=== PATIENT | male | born 1985 | race Two or more races ===

== ENCOUNTER 2016-11-23 14:43 | Emergency (ER) | payer MEDICAID ==
[2016-11-23 15:10] VITALS: BP 127/85
[2016-11-23] MEDS ORDERED: Lidocaine 1% 50 ML MDV INJECT ONE (15:58)
[2016-11-23] MEDS ORDERED: Bupivacaine 0.25% 10 ML SDV INJECT ONE (15:59)
--- NOTE | 2016-11-23 16:26 | EDM.PDOC ---
ED HPI GENERAL MEDICAL PROBLEM - General Chief Complaint: ENT Problem Stated Complaint: DENTAL COMPLAINT Time Seen by Provider: 11/23/16 15:55 Source of Information: Reports: Patient History Limitations: Reports: No Limitations - History of Present Illness INITIAL COMMENTS - FREE TEXT/NARRATIVE: 31-year-old male presents for evaluation treatment of dental pain. Patient reports that one month ago he broke a tooth on the left upper side. He states that he has been developing dental pain that has steadily been worsening over the last week. He states that he has tried Orajel, Tylenol and ibuprofen without any symptom relief. Reports that his last visited dental visit was about 2 years ago. He is currently trying to get in and see a dentist. Recently relocated from [place] to [place]. He has no appointment at this time. He is here requesting a dental block. Patient reports associated symptoms of fevers, nausea, headaches, left-sided facail pain extending into the left ear and the sinuses. He states he also has a bad taste in his mouth. He has not taken his temperature but feels he has been having fevers evident by feeling hot and chilled. No vomiting. Tooth/Teeth Pain Score (Numeric/FACES): 10 - Related Data Allergies Allergy/AdvReac Type Severity Reaction Status Date / Time Penicillins Allergy Swelling Verified 11/23/16 15:14 tramadol [From Ultram] Allergy Swelling Verified 11/23/16 15:14 Home Meds: Home Meds Acetaminophen/oxyCODONE [Percocet 325-5 MG] 1 tab PO Q4H PRN #20 tablet [Rx] Clindamycin HCl 300 mg PO Q6HR #40 capsule 11/23/16 [Rx] Past Medical History HEENT History: Reports: Other (See Below) Other HEENT History: dental issues Musculoskeletal History: Reports: Other (See Below) Other Musculoskeletal History: fractured T1 Social & Family History - Tobacco Use Smoking Status *Q: Current Every Day Smoker Years of Tobacco use: 16 Packs/Tins Daily: 0.2 - Caffeine Use Caffeine Use: Reports: Soda, Tea - Recreational Drug Use Recreational Drug Use: No ED ROS ENT - Review of Systems Review Of Systems: See Below Constitutional: Reports: Fever (reports fevers but has not checked his temperature), Chills, Malaise HEENT: Reports: Dental Pain (left upper teeth), Sinus Problem (left maxilla), Other (reports a bad taste in his mouth) GI/Abdominal: Reports: Nausea. Denies: Vomiting Neurological: Reports: Headache ED EXAM, ENT - Physical Exam Exam: See Below Exam Limited By: No Limitations General Appearance: Alert, WD/WN, No Apparent Distress Ears: Normal External Exam, Normal Canal, Hearing Grossly Normal, Normal TMs Nose: Normal Inspection Mouth/Throat: Normal Inspection, Normal Gums, Dental Abcess (#11 and #12), Dental Pain (#11 and #12), Dental Tenderness, Other (multiple missing teeth, very poor dentition, carries extending into the dentin in multiple teeth, multile broken teeth) Neck: Normal Inspection Respiratory/Chest: No Respiratory Distress, Lungs Clear, Normal Breath Sounds Cardiovascular: Normal Peripheral Pulses, Regular Rate, Rhythm, No Murmur Neurological: Alert, Oriented, Normal Cognition Psychiatric: Normal Affect, Normal Mood Skin: Warm, Dry, Normal Color Course - Vital Signs Last Recorded V/S: Last Vital Signs Temp 36.7 C 11/23/16 15:07 Pulse 91 11/23/16 15:07 Resp 20 11/23/16 15:07 BP 127/85 11/23/16 15:07 Pulse Ox 99 11/23/16 15:07 - Orders/Labs/Meds Meds: Medications Discontinued Medications Generic Name Dose Route Start Last Admin Trade Name Paul PRN Reason Stop Dose Admin Bupivacaine HCl 10 ml 11/23/16 15:59 11/23/16 16:57 Sensorcaine-Mpf 0.25% INJECT 11/23/16 16:00 10 ml ONETIME ONE Administration Lidocaine HCl 50 ml 11/23/16 15:58 11/23/16 16:56 Xylocaine 1% INJECT 11/23/16 15:59 50 ml ONETIME ONE Administration - Re-Assessments/Exams Free Text/Narrative Re-Assessment/Exam: 11/23/16 17:00 supraperiosteal infiltration dental block performed by injecting 1 and 1/2 mils of a 50-50 mixture of 1% lidocaine and 0.25% Marcaine into the mucobuccal fold at tooth number #11. Patient tolerated the procedure well. Anesthesia of the area achieved. Will start on clindamycin prescribed Percocet for pain. Discharge instructions as documented. Departure - Departure Time of Disposition: 17:01 Disposition: Home, Self-Care 01 Condition: Good Clinical Impression: Pain, dental, Dental abscess - Discharge Information Prescriptions: Clindamycin HCl 300 mg PO Q6HR #40 capsule Acetaminophen/oxyCODONE [Percocet 325-5 MG] 1 tab PO Q4H PRN #20 tablet PRN Reason: Pain Instructions: Dental Abscess, [id number] Referrals: PCP,None [Primary Care Provider] - Forms: ED Department Discharge Additional Instructions: follow-up with dental as soon as you are able to. Take clindamycin as prescribed. 1 tab every 6 hours for 10 days. Take this medication with food. Recommend starting a probiotic to help reduce upset stomach, nausea and diarrhea. Hulp-mgl-wocjdfe ibuprofen 600-800 mg every 6-8 hours for pain relief. For pain not relieved by ibuprofen he may take Percocet 1-2 tabs every 4-6 hours. Percocet can be habit-forming, I recommend he take as few days as needed to control his pain. Do not drive or operate machinery within 12 hours of taking the Percocet. Please return to the ER for any changing or worsening symptoms.
== END 2016-11-23 17:15 | disposition home or self-care (01) ==
LOC: JD.ED 14:43
DX: K04.7 Periapical abscess without sinus (principal); F17.210 Nicotine dependence, cigarettes, uncomplicated; Z88.0 Allergy status to penicillin; Z88.5 Allergy status to narcotic agent
CPT/HCPCS: 64400; 99283-25

== ENCOUNTER 2016-12-23 16:31 | Emergency (ER) | payer MEDICAID ==
[2016-12-23 16:46] VITALS: BP 138/93
[2016-12-23] MEDS ORDERED: Clindamycin HCl 150 MG Cap PO ONE (17:12)
--- NOTE | 2016-12-23 17:17 | EDM.PDOC ---
ED HPI GENERAL MEDICAL PROBLEM - General Chief Complaint: ENT Problem Stated Complaint: TOOTH PAIN Time Seen by Provider: 12/23/16 16:58 Source of Information: Reports: Patient History Limitations: Reports: No Limitations - History of Present Illness INITIAL COMMENTS - FREE TEXT/NARRATIVE: Patient is a 31-year-old male who presents to the ED complaining of an abscess to the left upper tooth. Patient has severe poor dentition. States approximately one month ago portion of the tooth #13 fractured off and development of pain thereafter. Has been using Orajel, Tylenol, and ibuprofen with no relief. He was evaluated in ED with findings concerning for dental abscess. He was treated with clindamycin and opioids. States he is awaiting for approval for Medicaid and thus has not seen a dentist yet. Has been taking Tylenol and ibuprofen with no relief. Notes drainage coming from the affected tooth. Has pain to the left cheek with no swelling present. He's had no fever/ chills, nausea/vomiting or any additional complaints. 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 Other Treatments FIBRE COMPOSITE TECHNICIAN: took at 1400 left lower jaw Pain Score (Numeric/FACES): 10 - Related Data Allergies Allergy/AdvReac Type Severity Reaction Status Date / Time Penicillins Allergy Swelling Verified 12/23/16 16:46 tramadol [From Ultram] Allergy Swelling Verified 12/23/16 16:46 Home Meds: Home Meds Clindamycin HCl 300 mg PO Q8HR #30 capsule 12/23/16 [Rx] Past Medical History HEENT History: Reports: Other (See Below) Other HEENT History: dental issues Musculoskeletal History: Reports: Other (See Below) Other Musculoskeletal History: fractured T1 Social & Family History - Family History Family Medical History: Noncontributory - Tobacco Use Smoking Status *Q: Current Some Day Smoker Years of Tobacco use: 18 Packs/Tins Daily: 0.2 - Caffeine Use Caffeine Use: Reports: Coffee - Recreational Drug Use Recreational Drug Use: No ED ROS ENT - Review of Systems Review Of Systems: ROS reveals no pertinent complaints other than HPI. ED EXAM, ENT - Physical Exam Exam: See Below Exam Limited By: No Limitations General Appearance: Alert, WD/WN, No Apparent Distress Ears: Hearing Grossly Normal Nose: Normal Inspection Mouth/Throat: Dental Abcess, Dental Pain, Dental Tenderness, Gum Swelling. No: Dry Mucous Membrane, Tonsillar Erythema, Tonsillar Exudates, Tonsillar Swelling , Trismus (Severe dental decay throughout his mouth with teeth missing. Affected tooth is #13 which is fractured in half. Small apical abscess present with minimal swelling present no drainage noted with palpation. Pain noted with gentle pressure along the gumline.), Uvular Deviation Head: Atraumatic, Normocephalic Neck: Normal Inspection, Supple Respiratory/Chest: No Respiratory Distress Cardiovascular: Normal Peripheral Pulses Neurological: Alert, Oriented, CN II-XII Intact, Normal Cognition Psychiatric: Normal Affect, Normal Mood Skin: Warm, Dry Course - Vital Signs Last Recorded V/S: Last Vital Signs Temp 97 F 12/23/16 16:43 Pulse 70 12/23/16 16:43 Resp 18 12/23/16 16:43 BP 138/93 H 12/23/16 16:43 Pulse Ox 99 12/23/16 16:43 - Orders/Labs/Meds Meds: Medications Discontinued Medications Generic Name Dose Route Start Last Admin Trade Name Freq PRN Reason Stop Dose Admin Clindamycin HCl 300 mg 12/23/16 17:12 12/23/16 17:32 Cleocin PO 12/23/16 17:13 300 mg ONETIME ONE Administration - Re-Assessments/Exams Free Text/Narrative Re-Assessment/Exam: Dental abscess noted to the #13 tooth. Although the patient has severe dental decay throughout his mouth and also adjacent to the area of concern. Small what appears to be of apical abscess with increased swelling to the gumline with erythema. No drainage noted. Patient does have increasing pain with palpation of the gumline. Offered to perform a supra-alveolar block for pain treatment to which the patient agreed. Patient had pain with injecting the bupivacaine. Numbness of the affected tooth noted. Ordered clindamycin 300 mg by mouth. We' ll discharge patient home with instructions as documented. Departure - Departure Time of Disposition: 17:22 Disposition: Home, Self-Care 01 Condition: Good Clinical Impression: Dental caries, Dental caries extending into dentin, Dental abscess, Pain, dental - Discharge Information Prescriptions: Clindamycin HCl 300 mg PO Q8HR #30 capsule Instructions: Dental Abscess, [id number], Dental Caries, [id number] Referrals: PCP,None [Primary Care Provider] - Forms: ED Department Discharge Additional Instructions: As discussed findings are concerning for dental abscess. Treatment is clindamycin 300 mg 3 times a day for 10 days. Take a sgta-[id number]-[id number] probiotic for the next month. Utilize Tylenol and ibuprofen and alternate fashion for pain. Call and make an appointment with a dentist and Dmitry for definitive treatment. Return to the ED for any new or worsening symptoms.
== END 2016-12-23 17:33 | disposition home or self-care (01) ==
LOC: JD.ED 16:31
DX: K04.7 Periapical abscess without sinus (principal); K02.9 Dental caries, unspecified; F17.210 Nicotine dependence, cigarettes, uncomplicated; Z88.0 Allergy status to penicillin; Z88.6 Allergy status to analgesic agent
CPT/HCPCS: 64400; 99283; A9270

== ENCOUNTER 2017-11-23 00:44 | Emergency (ER) | payer MEDICAID ==
[2017-11-23 00:59] VITALS: BP 132/103
[2017-11-23] MEDS ORDERED: Lidocaine/EPINEPHrine/Tetracaine Soln 1 ML TOP STA (01:10)
[2017-11-23] MEDS ORDERED: Bupivacaine 0.5% 10 ML SDV ONE (01:43)
[2017-11-23] MEDS ORDERED: Lidocaine 1% with EPINEPHrine 1:100,000 20 ML MDV ONE (01:43)
[2017-11-23] MEDS ORDERED: Lidocaine 1% with EPINEPHrine 1:100,000 20 ML MDV INJECT ONE (01:45)
[2017-11-23] MEDS ORDERED: Bupivacaine 0.5% 10 ML SDV INJECT ONE (01:45)
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
== END 2017-11-23 02:07 ==
LOC: JD.ED 00:44
DX: S01.81XA Laceration without foreign body of other part of head, initial encounter (principal); F10.129 Alcohol abuse with intoxication, unspecified; F17.210 Nicotine dependence, cigarettes, uncomplicated; Z88.0 Allergy status to penicillin; Z88.6 Allergy status to analgesic agent; W22.8XXA Striking against or struck by other objects, initial encounter
CPT/HCPCS: 12011; 99283; A9270; J3490

== ENCOUNTER 2019-09-24 10:14 | Emergency (ER) | payer SELFPAY | END 2019-09-24 10:30 | disposition left against medical advice (07) | LOC: JD.ED 10:14 | DX: Z53.21 Procedure and treatment not carried out due to patient leaving prior to being seen by health care provider (principal) ==

== ENCOUNTER 2019-09-25 11:10 | Emergency (ER) | payer OTHER ==
[2019-09-25 11:36] VITALS: BP 129/92; PULSE 86
--- NOTE | 2019-09-25 14:22 | EDM.PDOC ---
ED HPI GENERAL MEDICAL PROBLEM - General Chief Complaint: ENT Problem Stated Complaint: FACIAL SWELLING Time Seen by Provider: 09/25/19 14:15 - History of Present Illness INITIAL COMMENTS - FREE TEXT/NARRATIVE: 34-year-old male presents the emergency room with right facial swelling. This unfortunate gentleman has had a 2-day history of worsening swelling in his right face is progressively getting worse. Patient had reconstructive facial surgery with metal plates nearly 2 years ago. The patient denies any recent trauma he has had fevers with this most recent scenario. However he has not documented a fever here in the emergency room. Patient has significant discomfort from the swelling. The patient is not having any breathing difficulties or shortness of breath no nausea no vomiting. Face/Facial Pain Score (Numeric/FACES): 10 - Related Data Allergies Allergy/AdvReac Type Severity Reaction Status Date / Time Penicillins Allergy Severe Swelling Verified 09/25/19 11:36 tramadol [From Ultram] Allergy Severe Swelling Verified 09/25/19 11:36 Home Meds: Home Meds Clindamycin HCl 300 mg PO Q8H #30 capsule 09/25/19 [Rx] Hydrocodone/Acetaminophen [Haskell 7.5-325 Tablet] 1 - 2 each PO Q6H PRN #20 tablet 09/25/19 [Rx] Past Medical History HEENT History: Reports: Other (See Below) Other HEENT History: dental issues Musculoskeletal History: Reports: Fracture Other Musculoskeletal History: fractured T1 Psychiatric History: Reports: Depression - Past Surgical History HEENT Surgical History: Reports: Oral Surgery, Tonsillectomy, Other (See Below) Other HEENT Surgeries/Procedures: facial and jaw fx, orbit fx- repaired surgically Social & Family History - Family History Family Medical History: Noncontributory - Tobacco Use Smoking Status *Q: Current Every Day Smoker Years of Tobacco use: 3 Packs/Tins Daily: 0.5 - Caffeine Use Caffeine Use: Reports: Coffee, Soda - Recreational Drug Use Recreational Drug Type: Reports: Marijuana/Hashish - Living Situation & Occupation Living situation: Reports: Single Occupation: Unemployed ED ROS ENT - Review of Systems Review Of Systems: See Below Constitutional: Reports: Fever. Denies: Chills HEENT: Reports: Other (See history of present illness) Respiratory: Reports: No Symptoms Cardiovascular: Reports: No Symptoms GI/Abdominal: Reports: No Symptoms : Reports: No Symptoms Musculoskeletal: Reports: No Symptoms Skin: Reports: No Symptoms Neurological: Reports: No Symptoms ED EXAM, ENT - Physical Exam Exam: See Below Exam Limited By: No Limitations General Appearance: Alert, No Apparent Distress Ears: Normal External Exam, Normal Canal, Hearing Grossly Normal, Normal TMs Nose: Normal Inspection, Normal Mucousa, No Blood Mouth/Throat: Other (Significant swelling in the right side of his face and mouth make it difficult for him to open his mouth this is gently opened his upper teeth evaluated and the swelling is so high that is pushing mucosa below the level of the teeth he has exquisite tenderness in the tissue that feels warm no obvious erythema however is got dark complexion) Head: Other (Significant right facial swelling) Neck: Normal Inspection, Supple, Lymphadenopathy (R). No: Lymphadenopathy (L) Respiratory/Chest: No Respiratory Distress, Lungs Clear, Normal Breath Sounds Cardiovascular: Normal Peripheral Pulses, Regular Rate, Rhythm, No Edema Course - Vital Signs Last Recorded V/S: Last Vital Signs Temp 36.8 C 09/25/19 11:33 Pulse 86 09/25/19 11:33 Resp 20 09/25/19 11:33 BP 129/92 H 09/25/19 11:33 Pulse Ox 95 09/25/19 11:33 - Orders/Labs/Meds Labs: Laboratory Tests 09/25/19 09/25/19 Range/Units 14:15 14:15 WBC 8.92 (4.23-9.07) K/mm3 RBC 5.13 (4.63-6.08) M/mm3 Hgb 16.0 (13.7-17.5) gm/dl Hct 46.9 (40.1-51.0) % MCV 91.4 (79.0-92.2) fl MCH 31.2 (25.7-32.2) pg MCHC 34.1 (32.2-35.5) g/dl RDW Std Deviation 41.3 (35.1-43.9) fL Plt Count 277 (163-337) K/mm3 MPV 8.8 L (9.4-12.3) fl Neut % (Auto) 70.1 H (34.0-67.9) % Lymph % (Auto) 17.3 L (21.8-53.1) % [place] % (Auto) 11.2 (5.3-12.2) % Eos % (Auto) 1.1 (0.8-7.0) Baso % (Auto) 0.2 (0.1-1.2) % Neut # (Auto) 6.25 H (1.78-5.38) K/mm3 Lymph # (Auto) 1.54 (1.32-3.57) K/mm3 [place] # (Auto) 1.00 H (0.30-0.82) K/mm3 Eos # (Auto) 0.10 (0.04-0.54) K/mm3 Baso # (Auto) 0.02 (0.01-0.08) K/mm3 Sodium 138 (136-145) mEq/L Potassium 4.2 (3.5-5.1) mEq/L Chloride 102 (98-107) mEq/L Carbon Dioxide 29 (21-32) mEq/L Anion Gap 11.2 (5-15) BUN 13 (7-18) mg/dL Creatinine 0.8 (0.7-1.3) mg/dL Est Cr Clr Drug Dosing 135.61 mL/min Estimated GFR (MDRD) > 60 (>60) mL/min BUN/Creatinine Ratio 16.3 (14-18) Glucose 62 L (74-106) mg/dL Calcium 8.6 (8.5-10.1) mg/dL Total Bilirubin 0.8 (0.2-1.0) mg/dL AST 40 H (15-37) U/L ALT 69 H (16-63) U/L Alkaline Phosphatase 123 H (46-116) U/L C-Reactive Protein 5.0 H* (<1.0) mg/dL Total Protein 8.0 (6.4-8.2) g/dl Albumin 3.9 (3.4-5.0) g/dl Globulin 4.1 gm/dL Albumin/Globulin Ratio 1.0 (1-2) Meds: Medications Discontinued Medications Generic Name Dose Route Start Last Admin Trade Name Freq PRN Reason Stop Dose Admin Hydrocodone Bitart/Acetaminophen 2 tab 09/25/19 19:20 09/25/19 19:27 Haskell 325-5 Mg PO 09/25/19 19:21 2 tab ONETIME ONE Administration Fentanyl 100 mcg 09/25/19 14:35 09/25/19 15:13 Sublimaze IVPUSH 09/25/19 14:36 100 mcg ONETIME ONE Administration Fentanyl 50 mcg 09/25/19 17:13 09/25/19 17:18 Sublimaze IVPUSH 09/25/19 17:14 50 mcg ONETIME ONE Administration Fentanyl 100 mcg 09/25/19 18:14 09/25/19 18:40 Sublimaze IVPUSH 09/25/19 18:15 100 mcg ONETIME ONE Administration Clindamycin Phosphate 900 mg/ 106 mls @ 200 mls/hr 09/25/19 18:14 09/25/19 18:45 Sodium Chloride IV 09/25/19 18:45 200 mls/hr ONETIME ONE Administration Iopamidol 80 ml 09/25/19 15:05 09/25/19 15:05 Isovue-300 (61%) IVPUSH 09/25/19 15:06 80 ml ONETIME ONE Administration - Re-Assessments/Exams Free Text/Narrative Re-Assessment/Exam: 09/25/19 18:[address] Ennis on-call maxillofacial at [facility] in [place] thought was to try and localize this with an ultrasound she felt comfortable trying to drain it here and we did have ultrasound come in and I was not comfortable with the location with is very close proximity to the nose to be just a difficult space to work in.. Since the patient has not toxic from this he thought given him a large dose of IV clindamycin now and started him on clindamycin have follow-up on Friday would be a reasonable approach. There is a good chance this may try and settle down on its own. 09/25/19 20:03 Doing okay on the Haskell not great I think be reasonable to increase Haskell to 7.5 1 or 2 every 6 hours as needed for pain. And we will start him on the clindamycin. Departure - Departure Time of Disposition: 20:04 Disposition: Home, Self-Care 01 Clinical Impression: Right facial swelling - Discharge Information Referrals: PCP,None [Primary Care Provider] - Forms: ED Department Discharge Additional Instructions: Return to the emergency room with any questions problems or worsening symptoms. You have been started on 2 medications the first 1 is clindamycin this is an antibiotic take it 3 times a day until directed otherwise or you run out. You have been started on Haskell 7.5 this is a pain medication take 1 or 2 every 6 hours as needed for pain. If you are using this medication on a regular basis take some to prevent constipation such as Colace. This is duvc-jkv-rluhkie 100 mg twice a day. Do not drive or return to work within 12 hours of using the Haskell, or hydrocodone. Friday follow-up with Dr. Ennis the [facility]. Call first thing Friday morning for an appointment [phone] Sepsis Event Note (ED) - Evaluation Sepsis Screening Result: No Definite Risk - Focused Exam Vital Signs: Vital Signs Temp Pulse Resp BP Pulse Ox 09/25/19 11:33 36.8 C 86 20 129/92 H 95
[2019-09-25] MEDS ORDERED: fentaNYL 100 MCG/2 ML SDV IVPUSH ONE ×3 (14:35→18:14)
[2019-09-25] MEDS ORDERED: Iopamidol 755 Mg/ML 100 ML Bottle IVPUSH ONE (15:03)
[2019-09-25] MEDS ORDERED: Iopamidol 612 MG/ML 100 ML Bottle IVPUSH ONE (15:05)
--- NOTE | 2019-09-25 15:34 | CT ---
CT facial bones Technique: Multiple axial sections through the facial bones were obtained. Reconstructed coronal and sagittal images were obtained. Intravenous contrast was utilized. Findings: Diffuse soft tissue swelling is noted along the lateral right mandible and anterior to the right maxillary sinus. Low density findings are seen next to the anterior left maxillary wall measuring 3.2 cm in size either due to abscess or hematoma. Parotid salivary glands and submandibular salivary glands appear normal. Normal size lymph nodes are present within the neck. Paranasal sinuses show nothing acute. Minimal mucosal thickening is seen within the inferior right maxillary sinus. Dental caries are present. Mastoid sinuses are clear. No acute abnormality is seen within the facial bones. Chronic nasal septal deviation is noted. Impression: 1. Diffuse soft tissue swelling lateral to the right mandible and anterior to the right maxillary sinus within the cheek. 2. Low density is noted next anterior maxillary wall either due to hematoma or abscess measuring 3.2 cm. 3. Scattered dental caries are noted. Other findings believed to be incidental. Diagnostic code #3 This report was dictated in [facility]
[2019-09-25] MEDS ORDERED: Clindamycin Phosphate 900 MG in Sodium Chloride 0.9% 100 ML IV ONE (18:14)
--- NOTE | 2019-09-25 18:44 | US ---
Left cheek ultrasound: Multiple real-time images of the left cheek were obtained. Hypoechoic area correlating to low density finding seen within the left cheek. This measures 3.1 x 1.7 x 1.5 cm. Differential includes hematoma as well as abscess. Diffuse overlying soft tissue thickening is seen. Impression: 1. Finding as noted above either due to hematoma or abscess. If patient has infectious symptoms abscess is the most likely etiology. Diagnostic code #3 This report was dictated in MDT
[2019-09-25] MEDS ORDERED: Acetaminophen/HYDROcodone 325-5 MG Tab PO ONE (19:20)
== END 2019-09-25 20:24 | disposition home or self-care (01) ==
LOC: JD.ED 11:10
DX: R22.0 Localized swelling, mass and lump, head (principal); F17.210 Nicotine dependence, cigarettes, uncomplicated; Z88.0 Allergy status to penicillin; Z88.5 Allergy status to narcotic agent
CPT/HCPCS: 36415; 70487; 76536; 80053; 85025; 86140; 96365; 96375; 96376; 99284; A9270; J3010; J3490; J7050; Q9967